=== PATIENT | male | born 1970 | race African-American/Black ===

== ENCOUNTER 2019-09-06 14:19 | Emergency (ER) | payer SELFPAY ==
[2019-09-06] MEDS ORDERED: KETOROLAC 30 MG/ML INJ ONE (16:41)
--- NOTE | 2019-09-06 17:13 | RAD REPORT ---
EXAM DESCRIPTION: RAD - Chest Pa And Lat (2 Views) - 09/06/2019 5:03 pm CLINICAL HISTORY: COUGH COMPARISON: None TECHNIQUE: Frontal and lateral views of the chest were obtained. FINDINGS: The lungs are normal volume. Patchy opacification is present anterior left lung base suspi cious for pneumonia. Interstitial markings overall in each lung base are mildly prominent. Heart si ze is normal and central vasculature is within normal limits. No pleural effusion or pneumothorax se en. No acute bony finding noted. No aortic abnormality. IMPRESSION: Anterior left lung base pneumonia.
--- NOTE | 2019-09-06 17:13 | RAD REPORT ---
EXAM DESCRIPTION: RAD - Lumbar Spine 3 Views - 09/06/2019 5:06 pm CLINICAL HISTORY: PAIN COMPARISON: No comparisons FINDINGS: A three-view lumbar spine examination was performed. Lumbar bodies are normal in height and alignment. No fracture or acute bony process seen. No disc spa ce narrowing. L5-S1 facet joint degenerative changes are present worse on the right. No pars defects identified. IMPRESSION: Lower lumbar facet degenerative change at the L5-S1 level. No fracture or acute lumbar finding.
--- NOTE | 2019-09-06 17:38 | EDPHYS ---
Physician Documentation [facility] Name: Kunal Maldonado Age: 48 yrs Sex: Male : 1970 Arrival Date: 09/06/2019 Time: 14:22 Bed 14 Private MD: ED Physician Brian Rosales HPI: 09/05 16:25 This 48 yrs old Black Male presents to ER via Ambulatory with complaints of Back Pain. cp 16:25 The patient presents with pain that is acute, with no known mechanism of injury. cp 16:25 The symptoms are located in the low back. cp 16:25 Onset: The symptoms/episode began/occurred few days ago. cp 16:25 The pain radiates to the posterior aspect of each leg. cp Historical: - Allergies: 14:36 No Known Allergies; em - Home Meds: 14:36 None [Active]; em - PMHx: 14:36 Hypertension; em - PSHx: 14:36 None; em - Immunization history:: Adult Immunizations not up to date. - Social history:: Smoking status: Patient denies any tobacco usage or history of. ROS: 16:30 Constitutional: Negative for body aches, chills, fever, poor PO intake. cp 16:30 Eyes: Negative for injury, pain, redness, and discharge. cp 16:30 ENT: Negative for drainage from ear(s), ear pain, sore throat, difficulty swallowing, difficulty handling secretions. 16:30 Cardiovascular: Negative for chest pain. 16:30 Respiratory: Positive for cough, Negative for shortness of breath, wheezing. 16:30 Abdomen/GI: Negative for abdominal pain, nausea, vomiting, and diarrhea, constipation, bowel incontinence. 16:30 Back: Positive for pain at rest, pain with movement, of the low back area, Negative for injury or acute deformity, decreased range of motion. 16:30 : Negative for urinary symptoms, flank pain, bladder incontinence, testicular pain 16:30 Skin: Negative for rash. 16:30 Neuro: Negative for altered mental status, headache, numbness, weakness. 16:30 All other systems are negative. Exam: 16:35 Constitutional: The patient appears in no acute distress, alert, awake, cp non-diaphoretic, non-toxic, well developed, well nourished. 16:35 Head/Face: Normocephalic, atraumatic. cp 16:35 Eyes: Periorbital structures: appear normal, Conjunctiva: normal, no exudate, no cp injection, Sclera: no appreciated abnormality, Lids and lashes: appear normal, bilaterally. 16:35 ENT: External ear(s): are unremarkable, Nose: is normal, Mouth: is normal, Posterior pharynx: Airway: no evidence of obstruction, patent. 16:35 Neck: ROM/movement: is normal, is supple, without pain, no range of motions limitations. 16:35 Chest/axilla: Inspection: normal. 16:35 Cardiovascular: Rate: normal, Rhythm: regular, Edema: is not appreciated, JVD: is not appreciated. 16:35 Respiratory: the patient does not display signs of respiratory distress, Respirations: normal, no use of accessory muscles, no retractions, labored breathing, is not present, Breath sounds: are clear throughout, no decreased breath sounds, no stridor, no wheezing. 16:35 Abdomen/GI: Inspection: abdomen appears normal, Bowel sounds: active, all quadrants, Palpation: abdomen is soft and non-tender, in all quadrants, rebound tenderness, is not appreciated, voluntary guarding, is not appreciated, involuntary guarding, is not appreciated. 16:35 Back: pain, that is moderate, of the low back area, ROM is painful, with all movement, Straight leg raises: of both lower extremities does not illicit pain. 16:35 Skin: no rash present. 16:35 Neuro: Orientation: to person, place \T\ time. Mentation: is normal, Motor: moves all fours, strength is normal, Sensation: is normal, Gait: is steady, Deep tendon reflexes are 2+ (normal) in the right patellar, right Achilles, left patellar and left Achilles. Vital Signs: 14:32 BP 155 / 110; Pulse 113; Resp 18; Temp 98.9(O); Pulse Ox 98% on R/A; Weight 103.42 kg; em Height 5 ft. 10 in. (177.80 cm); Pain 7/10; 17:26 BP 142 / 97; Pulse 107; Resp 18; Pulse Ox 99% on R/A; ph 17:50 Pulse 101; Resp 18; Temp 98.0; Pulse Ox 100% on R/A; ph 14:32 Body Mass Index 32.71 (103.42 kg, 177.80 cm) em MDM: 16:10 Patient medically screened. cp 17:00 Differential diagnosis: Basilar Pneumonia Cholelithiasis chronic back pain, Fracture cp Pyelonephritis ruptured disc, Ureterolithiasis cauda equina, spinal stenosis, sciatica. 17:35 Data reviewed: vital signs, nurses notes, lab test result(s), radiologic studies, plain cp films, and as a result, I will discharge patient. 09/05 16:25 Order name: Urine Microscopic Only 09/05 18:05 Order name: COVID-19 cp 09/05 16:25 Order name: XRAY Lumbar Spine (3 Views); Complete Time: 17:30 cp 09/05 16:44 Order name: Chest Pa And Lat (2 Views) XRAY; Complete Time: 17:30 ph 09/05 18:09 Order name: Urine Dipstick--Ancillary (enter results) em 09/05 18:27 Order name: Urine Culture EDCA 09/05 16:25 Order name: Urine Dipstick-Ancillary (obtain specimen); Complete Time: 16:44 cp 09/05 18:05 Order name: Droplet/Contact Precautions; Complete Time: 18:43 cp 09/05 18:05 Order name: Labs collected and sent; Complete Time: 18:43 cp 09/05 18:05 Order name: O2 Per Protocol; Complete Time: 18:43 cp Administered Medications: 16:44 Drug: TORadol 30 mg Route: IM; Site: right deltoid; ph Disposition: 09/06 05:44 Co-signature as Attending Physician, Brian Rosales MD I agree with the assessment and kdr plan of care. Disposition: 09/06/19 17:37 Discharged to Home. Impression: Low back pain, Radiculopathy, lumbar region, Pneumonia due to other specified bacteria. - Condition is Stable. - Discharge Instructions: Back Pain, Adult, Community-Acquired Pneumonia, Adult, Back Exercises. - Prescriptions for Cyclobenzaprine 10 mg Oral Tablet - take 1 tablet by ORAL route every 8 hours As needed no driving while taking medication; 20 tablet. Tramadol 50 mg Oral Tablet - take 1 tablet by ORAL route every 8 hours as needed. no driving while taking medication; 20 tablet. Zithromax Z- Gabriel 250 mg Oral Tablet - take 1 tablet by ORAL route as directed for 5 days Day 1 - take two (2) tablets one time. Day 2, 3, 4 , 5 take one (1) tablet once daily.; 6 tablet. Medrol (Gabriel) 4 mg Oral Tablets, Dose Pack - take 1 tablet by ORAL route as directed - follow package instructions; 1 packet. Lidoderm 5 % Topical adhesive patch,medicated - apply 1 patch by TRANSDERMAL route once daily As needed; 1 box. - Medication Reconciliation Form, Thank You Letter, Antibiotic Education, Prescription Opioid Use form. - Follow up: Private Physician; When: 2 - 3 days; Reason: Recheck today's complaints. - Problem is new. - Symptoms have improved. Signatures: Dispatcher [employer] EDMS Brian Rosales MD MD kdr Munoz, Edgar, RN RN em Smirch, Shelby, RN RN ss Hall, Patricia, RN RN ph Lalo Chaudhari PA PA cp Corrections: (The following items were deleted from the chart) 09/05 18:43 17:37 09/06/2019 17:37 Discharged to Home. Impression: Low back pain; Radiculopathy, ss lumbar region; Pneumonia due to other specified bacteria. Condition is Stable. Discharge Instructions: Community-Acquired Pneumonia, Adult, Sciatica. Prescriptions for Cyclobenzaprine 10 mg Oral Tablet - take 1 tablet by ORAL route every 8 hours As needed no driving while taking medication; 20 tablet, Tramadol 50 mg Oral Tablet - take 1 tablet by ORAL route every 8 hours as needed. no driving while taking medication; 20 tablet, Zithromax Z-Gabriel 250 mg Oral Tablet - take 1 tablet by ORAL route as directed for 5 days Day 1 - take two (2) tablets one time. Day 2, 3, 4 , 5 take one (1) tablet once daily.; 6 tablet, Medrol (Gabriel) 4 mg Oral Tablets, Dose Pack - take 1 tablet by ORAL route as directed - follow package instructions; 1 packet. and Forms are Medication Reconciliation Form, Thank You Letter, Antibiotic Education, Prescription Opioid Use. Follow up: Private Physician; When: 2 - 3 days; Reason: Recheck today's complaints. Problem is new. Symptoms have improved. cp
--- NOTE | 2019-09-06 17:38 | ER ---
Nurse's Notes [facility] Name: Kunal Maldonado Age: 48 yrs Sex: Male : 1970 Arrival Date: 09/06/2019 Time: 14:22 Bed 14 Private MD: Diagnosis: Low back pain;Radiculopathy, lumbar region;Pneumonia due to other specified bacteria Presentation: 09/05 14:32 Chief complaint: Patient states: low back pain that started a few days ago, radiates em into right leg, denies burning with urination. Coronavirus screen: Proceed with normal triage. Patient denies a cough. Patient denies shortness of breath or difficulty breathing. Patient denies measured and/or subjective temperature greater than 100.4F prior to today's visit. Patient denies travel on a cruise ship or to a country the [facility] currently lists as an affected area. Patient denies contact with known and/or suspected case of COVID-19. Ebola Screen: Patient negative for fever greater than or equal to 101.5 degrees Fahrenheit, and additional compatible Ebola Virus Disease symptoms Patient denies exposure to infectious person. Patient denies travel to an Ebola-affected area in the 21 days before illness onset. No symptoms or risks identified at this time. Initial Sepsis Screen: Does the patient meet any 2 criteria? HR > 90 bpm. No. Patient's initial sepsis screen is negative. Does the patient have a suspected source of infection? No. Patient's initial sepsis screen is negative. Risk Assessment: Do you want to hurt yourself or someone else? Patient reports no desire to harm self or others. Onset of symptoms was September 06, 2019. 14:32 Method Of Arrival: Ambulatory em 14:32 Acuity: CHRISTINA 4 em Historical: - Allergies: 14:36 No Known Allergies; em - Home Meds: 14:36 None [Active]; em - PMHx: 14:36 Hypertension; em - PSHx: 14:36 None; em - Immunization history:: Adult Immunizations not up to date. - Social history:: Smoking status: Patient denies any tobacco usage or history of. Screenin:25 Abuse screen: Denies threats or abuse. Denies injuries from another. Nutritional ph screening: No deficits noted. Tuberculosis screening: No symptoms or risk factors identified. Fall Risk None identified. Assessment: 16:30 General: Appears in no apparent distress. comfortable, well groomed, Behavior is calm, ph cooperative, appropriate for age, Denies fever, feeling ill. Pain: Complains of pain in right low back Pain radiates to right leg. Neuro: Level of Consciousness is awake, alert, obeys commands, Oriented to person, place, time, situation. Cardiovascular: Capillary refill < 3 seconds in bilateral fingers Patient's skin is warm and dry. Respiratory: Reports cough that is productive, Airway is patent Respiratory effort is even, unlabored, Respiratory pattern is regular, symmetrical. GI: No signs and/or symptoms were reported involving the gastrointestinal system. Derm: Skin is intact, is healthy with good turgor, Skin is pink, warm \T\ dry. Musculoskeletal: Circulation, motion, and sensation intact. Range of motion: intact in all extremities. 17:57 Reassessment: Patient appears in no apparent distress at this time. Patient and/or ph family updated on plan of care and expected duration. Pain level reassessed. Patient is alert, oriented x 3, equal unlabored respirations, skin warm/dry/pink. Went to d/c pt, spoke about pneumonia dx, pt now requesting COVID swab. Vital Signs: 14:32 BP 155 / 110; Pulse 113; Resp 18; Temp 98.9(O); Pulse Ox 98% on R/A; Weight 103.42 kg; em Height 5 ft. 10 in. (177.80 cm); Pain 7/10; 17:26 BP 142 / 97; Pulse 107; Resp 18; Pulse Ox 99% on R/A; ph 17:50 Pulse 101; Resp 18; Temp 98.0; Pulse Ox 100% on R/A; ph 14:32 Body Mass Index 32.71 (103.42 kg, 177.80 cm) em ED Course: 14:22 Patient arrived in ED. as 14:35 Triage completed. em 14:36 Arm band placed on. em 16:04 Lalo Chaudhari PA is PHCP. cp 16:04 Brian Rosales MD is Attending Physician. cp 16:23 Susan Duran, HERBERTH is Primary Nurse. ph 16:25 Patient has correct armband on for positive identification. Bed in low position. Call ph light in reach. Side rails up X 1. Pulse ox on. NIBP on. Door closed. Noise minimized. Warm blanket given. 17:04 XRAY Lumbar Spine (3 Views) In Process Unspecified. EDMS 17:04 Chest Pa And Lat (2 Views) XRAY In Process Unspecified. EDMS 17:26 No provider procedures requiring assistance completed. Patient did not have IV access ph during this emergency room visit. Administered Medications: 16:44 Drug: TORadol 30 mg Route: IM; Site: right deltoid; ph Outcome: 17:37 Discharge ordered by MD. cp 18:35 Discharged to home ambulatory. ph 18:35 Condition: good 18:35 Discharge instructions given to patient, Instructed on discharge instructions, follow up and referral plans. medication usage, Demonstrated understanding of instructions, follow-up care, medications, Prescriptions given X 5 18:43 Patient left the ED. ss Signatures: Dispatcher [employer] Mynor Lyman RN RN Kari Young Shelby, RN RN Susan Duran RN RN ph Lalo Chaudhari, PA PA cp Corrections: (The following items were deleted from the chart) 19:24 18:35 Discharge instructions given to patient, Instructed on discharge instructions, ph follow up and referral plans. medication usage, Demonstrated understanding of instructions, follow-up care, medications, Prescriptions given X ph
[2019-09-06 18:15] LABS: Urine Blood NEGATIVE (NEG); Urine Glucose 2+ (NEG); Urine Protein 2+ (NEG); Urine Specific Gravity >1.030 (1.005-1.030)
[2019-09-06 18:25] LABS: Urine Bacteria 20-50 /HPF (NONE SEEN); Urine Culture Reflex Order REFLEXED; Urine RBC <5 /HPF (NONE SEEN)
[2019-09-06 18:52] VITALS: TEMP 98.9
[2019-09-06 18:53] VITALS: BP 142/97; O2SAT 99
== END 2019-09-06 18:43 | disposition home or self-care (01) ==
LOC: EDSEX 14:19 → ER 14:19
DX: U07.1 COVID-19 (principal); J15.8 Pneumonia due to other specified bacteria; M54.16 Radiculopathy, lumbar region; I10 Essential (primary) hypertension
CPT/HCPCS: 71046; 72100; 81003; 81015; 87086; 87088; 96372; 99284; U0002